=== PATIENT | female | born 1970 | race Caucasian/White ===

== ENCOUNTER 2019-04-02 06:25 | Emergency (ER) | payer OTHER ==
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
--- NOTE | 2019-04-02 07:37 | RADIOLOGY REPORT ---
EXAMINATION: Right Thumb, Minimum Two Views EXAM DATE: 04/02/2019 6:52 AM TECHNIQUE: PA, lateral, and oblique views INDICATION: swelling of finger COMPARISON: None ENCOUNTER: Initial FINDINGS: Diffuse soft tissue swelling. No interstitial air. Osteolysis and fragmentation distal . Concerning f or osteomyelitis. Follow-up MRI as clinically directed. Osteolysis distal phalanx middle finger diffe rential diagnosis is long: hyperparathyroidism progressive systemic sclerosis, posttraumatic, vascula r, occupational. Correlate clinically IMPRESSION: 1. Diffuse soft tissue swelling. Fragmentation and osteolysis distal phalanx concerning for osteomyel itis. No interstitial air or radiopaque foreign body 2. Osteolysis distal phalanx middle finger Dictated by: García Garcia MD on 04/02/2019 7:27 AM. .
[2019-04-02] MEDS ORDERED: CEFTRIAXONE SODIUM 2 GM in 0.9 % SODIUM CHLORIDE 100ML 100 ML IVPB ONE (07:59)
[2019-04-02] MEDS ORDERED: VANCOMYCIN 1GM/200ML PREMIX 1 GM/200 ML PIGGYBACK IVPB SCH (08:15)
[2019-04-02 08:43] LABS: BASO % 0.4 % (0-6); EOS % 0.8 % (0-6); GRAN % 79.2 % (47-80); HEMATOCRIT 45.1 % (35.0-47.0); HEMOGLOBIN 14.8 gm/dl (11.6-16.0); LYMPH % 13.6 % (16-45); MEAN CELL VOLUME 95.1 fl (81-97); MEAN CORPUSCULAR HEMOGLOBIN 31.2 pg (27-33); MEAN CORPUSCULAR HGB CONC 32.8 g/dl (32-36); MEAN PLATELET VOLUME 9.2 fl (7.4-10.4); PLATELET COUNT 233 K/uL (130-400); RED BLOOD COUNT 4.74 M/uL (3.80-5.40); RED CELL DISTRIBUTION WIDTH 12.5 % (11.5-14.5); WHITE BLOOD COUNT W/O DIFF 7.5 K/uL (4.2-12.2)
[2019-04-02] MEDS ORDERED: HYDROMORPHONE HCL 2 MG/ML VIAL IVP ONE (08:48)
--- NOTE | 2019-04-02 08:50 | Emergency Department Record ---
History of Present Illness - General Chief complaint: Extremity Problem Stated complaint: SWOLLEN FINGER Time Seen by Provider: 04/02/19 06:34 Source: Patient Mode of Arrival: Ambulatory Limitations: No limitations - History of Present Illness -: Days(s) Location: Right, Hand Radiation: Proximal Severity scale (1-10): 2 Consistency: Getting worse Improves with: Nothing Worsens with: Palpation Associated Symptoms: Denies other symptoms - Related Data Home Medications Medication Instructions Recorded Confirmed Last Taken No Home Med [NO HOME MEDS] 04/02/19 04/02/19 Unknown Allergies Allergy/AdvReac Type Severity Reaction Status Date / Time No Known Drug Allergies Allergy Verified 04/02/19 06:43 Travel Screening - Travel/Exposure Within Last 30 Days Have you traveled within the last 30 days?: No - Travel Symptoms Symptom Screening: None Review of Systems Constitutional: Reports: As per HPI. Denies: Chills, Fever, Malaise, Night sweats, Weakness, Weight change Eyes: Reports: As per HPI. Denies: Eye discharge, Eye pain, Photophobia, Vision change ENT: Reports: As per HPI. Denies: Congestion, Dental pain, Ear pain, Epistaxis, Hearing loss, Throat pain Respiratory: Reports: As per HPI. Denies: Cough, Dyspnea, Hemoptysis, Stridor, Wheezes Cardiovascular: Reports: As per HPI. Denies: Arrhythmia, Chest pain, Dyspnea on exertion, Edema, Murmurs, Orthopnea, Palpitations, Paroxysmal nocturnal dyspnea, Rheumatic Fever, Syncope Endocrine: Reports: As per HPI. Denies: Fatigue, Heat or cold intolerance, Poly dipsia, Polyuria Gastrointestinal: Reports: As per HPI. Denies: Abdominal pain, Constipation, Diarrhea, Hematemesis, Hematochezia, Melena, Nausea, Vomiting Genitourinary: Reports: As per HPI. Denies: Abnormal menses, Discharge, Dyspareunia, Dysuria, Frequency, Hematuria, Incontinence, Retention, Urgency Musculoskeletal: Reports: As per HPI. Denies: Arthralgia, Back pain, Gout, Joint swelling, Myalgia, Neck pain Skin: Reports: As per HPI. Denies: Bruising, Change in color, Change in hair/nails, Lesions, Pruritus, Rash Neurological: Reports: As per HPI. Denies: Abnormal gait, Confusion, Headache, Numbness, Paresthesias, Seizure, Tingling, Tremors, Vertigo, Weakness Psychiatric: Reports: As per HPI. Denies: Anxiety, Auditory hallucinations, Depression, Homicidal thoughts, Suicidal thoughts, Visual hallucinations Hematological/Lymphatic: Reports: As per HPI. Denies: Anemia, Blood Clots, Easy bleeding, Easy bruising, Swollen glands Past Medical History - SOCIAL HISTORY Smoking Status: Never smoker Alcohol Use: None Drug Use: None - RESPIRATORY Hx Respiratory Disorders: No - CARDIOVASCULAR Hx Cardio Disorders: No - NEURO Hx Neuro Disorders: No - GI Hx GI Disorders: No - Hx Genitourinary Disorders: No - ENDOCRINE Hx Endocrine Disorders: No - MUSCULOSKELETAL Hx Musculoskeletal Disorders: Yes Hx Arthritis: Yes Comment:: osteomyelitis-right middle finger - PSYCH Hx Psych Problems: No - HEMATOLOGY/ONCOLOGY Hx Hematology/Oncology Disorders: No Family Medical History Any Significant Family History?: No Family Hx Comment (NOT TO BE USED IN PLACE OF ITEMS BELOW): denies Physical Exam - General Limitations: No limitations Course Vital Signs 04/02/19 06:33 Temperature 98.7 F Pulse Rate [ 98 H Pulse Ox Probe] Respiratory 18 Rate Blood Pressure 155/89 [Left Arm] Pulse Ox 98 - Reevaluation(s) Reevaluation #1: 04/02/19 08:49 dr paez called back and wants pt to come straight to his office and then he or one of his partners will take her to surgery Medical Decision Making - Lab Data Result diagrams: 04/02/19 08:25 04/02/19 08:25 Disposition Disposition: Transfer Clinical Impression: Osteomyelitis Qualifiers: Osteomyelitis type: other acute Osteomyelitis location: hand Laterality: right Qualified Code(s): M86.141 - Other acute osteomyelitis, right hand Disposition: Acute Care Hospital Transfer Transfer To: dr dov stubbs office Reason For Transfer: needs hand specialist Accepting Physician: dr dov paez Time Discussed w/Accepting Physician: 08:51 Forms: Patient Portal Access Quality - Quality Measures Quality Measures: N/A - Blood Pressure Screening Does Patient Have Any of the Following: No Blood Pressure Classification: Pre-Hypertensive BP Reading Systolic Measurement: 155 Diastolic Measurement: 89 Screening for High Blood Pressure: < Pre-Hypertensive BP, F/U Documented > [G8950] Pre-Hypertensive Follow-up Interventions: Follow-up with rescreen every year.
[2019-04-02 08:57] LABS: BLOOD UREA NITROGEN 10 mg/dL (6-20); CREATININE 0.7 mg/dL (0.5-0.9); EST GLOMERULAR FILTRATION RATE > 60 mL/min
[2019-04-02 09:00] LABS: GLUCOSE,RANDOM 118 mg/dL (74-109)
[2019-04-02] MEDS ORDERED: ONDANSETRON HCL IV 4 MG/2 ML VIAL IVP ONE (09:11)
== END 2019-04-02 10:14 | disposition short-term general hospital (02) ==
LOC: ER 06:25
DX: M86.141 Other acute osteomyelitis, right hand (principal)
CPT/HCPCS: 73140; 80048; 85025; 85651; 86140; 96365; 96366; 96368; 96375; 99285; J2405; J3370